=== PATIENT | female | born 1950 | race Caucasian/White ===

== ENCOUNTER → 2023-08-10 | Day surgery (SDC) | payer MEDICARE | LOC: SDC-PAIN 10:56 | PROVIDERS: ATTEND Psychiatry & Neurology Pain Medicine | DX: Z53.8 Procedure and treatment not carried out for other reasons (principal) ==

== ENCOUNTER 2024-08-02 15:39 | Day surgery (SDC) | payer MEDICARE ==
[2024-08-02] MEDS ORDERED: BUPIVACAINE 0.5% VIAL IJ ONE (15:40)
[2024-08-02] MEDS ORDERED: methylPREDNISolone acetate IM ONE (15:40)
[2024-08-02] MEDS ORDERED: LIDOCAINE HCL 1% 50 MG/5 ML VL IJ ONE (15:40)
--- NOTE | 2024-08-03 08:40 | XRAY ---
Indication: Left knee injection. Intraoperative fluoroscopy provided for 4 seconds. Single digital spot image submitted for interpretation demonstrates needle tip projecting over left femur intercondylar notch. Small amount of contrast injected for needle placement. Correlate with intraoperative findings/report.
--- NOTE | 2024-08-03 08:40 | XRAY ---
Indication: Right knee injection. Intraoperative fluoroscopy provided for 9 seconds. Single digital spot image submitted for interpretation demonstrates needle tip projecting over right femur intercondylar notch. Small amount of contrast injected for needle placement. Correlate with intraoperative findings/report.
--- NOTE | 2024-08-03 09:42 | XRAY ---
9 seconds of fluoroscopy were used in surgery for a right intra-articular knee injection.
--- NOTE | 2024-08-03 09:42 | XRAY ---
4 seconds of fluoroscopy were used in surgery for a left intra-articular knee injection.
== END 2024-08-02 17:38 | disposition home or self-care (01) ==
LOC: SDC-PAIN 15:39
PROVIDERS: ATTEND Psychiatry & Neurology Pain Medicine
DX: M17.0 Bilateral primary osteoarthritis of knee (principal); E11.9 Type 2 diabetes mellitus without complications
CPT/HCPCS: 20610; 73560; 77002; 82947; J1010; Q9966